=== PATIENT | male | born 1985 | race Caucasian/White ===

== ENCOUNTER 2021-04-04 15:33 | Emergency (ER) | payer BC ==
[2021-04-04 16:18] LABS: Absolute Lymphocytes (CBC) 2.2 K/uL (0.7-4.9); Basophils % 0.5 % (0-1.3); Hematocrit 46.1 % (39.6-49.0); Lymphocytes % 28.5 % (15.3-44.8); MPV 8.5 fL (7.6-11.3); RBC Red Blood Cell Count 5.23 M/uL (4.33-5.43)
[2021-04-04 16:21] LABS: Protime INR 1.07
[2021-04-04 16:34] LABS: ALT/SGPT 44 U/L (12-78); AST/SGOT 26 U/L (15-37); Albumin 3.9 g/dL (3.4-5.0); Alkaline Phosphatase 72 U/L (45-117); BUN Blood Urea Nitrogen 14 mg/dL (7-18); Bicarbonate 22 mmol/L (21-32); Bilirubin Direct 0.1 mg/dL (0-0.2); Bilirubin Total 0.4 mg/dL (0.2-1.0); Glucose Level 106 mg/dL (74-106); Potassium 3.7 mmol/L (3.5-5.1); Protein, Total 7.1 g/dL (6.4-8.2); Sodium Level 143 mmol/L (136-145)
[2021-04-04] MEDS ORDERED: NA CHLORIDE 0.9% 3,000 ML ONE (16:40)
[2021-04-04 18:40] LABS: Urine Blood Negative (Negative); Urine Glucose Negative (Negative); Urine Protein Negative (Negative); Urine Specific Gravity <=1.005 (1.005-1.030)
--- NOTE | 2021-04-04 18:41 | EDPHYS ---
Physician Documentation [facility] Name: Rayray Mckeon Age: 35 yrs Sex: Male : 1985 Arrival Date: 04/04/2021 Time: 15:34 Bed 19 Private MD: ED Physician Tony Collins HPI: 04/04 18:38 This 35 yrs old Male presents to ER via EMS with complaints of Altered Mental Status. ma2 18:38 The patient presents with confusion. Onset: The symptoms/episode began/occurred ma2 gradually, 1 day(s) ago. Possible causes: drug use, alcohol. Associated signs and symptoms: Pertinent negatives: ataxia, combativeness, diaphoresis, diarrhea, headache. The patient has experienced similar episodes in the past. Healthy 30 was drinking vodka and smoking vape, and then he became emotional, and confused. Mom would like to check him out. Patient is intoxicated with alcohol. Has no other symptoms.. Historical: - Allergies: 15:54 No Known Allergies; sl2 - PMHx: 15:54 None; sl2 - Immunization history:: Adult Immunizations up to date, Client reports having NOT received the Covid vaccine. - Social history:: Smoking status: Patient reports the use of cigarette tobacco products, Patient uses alcohol, occasionally. Patient/guardian denies using alcohol, street drugs, The patient lives with family. - Family history:: not pertinent. ROS: 18:38 Constitutional: Negative for fever, chills, and weight loss, Eyes: Negative for injury, ma2 pain, redness, and discharge. 18:38 All other systems are negative. Exam: 18:38 Constitutional: This is a well developed, mildly drowsy, based on what patient's and ma2 mom states he is likely intoxicated with alcohol well nourished patient who is awake, alert, and in no acute distress. Head/Face: Normocephalic, atraumatic. Eyes: Pupils equal round and reactive to light, extra-ocular motions intact. Lids and lashes normal. Conjunctiva and sclera are non-icteric and not injected. Cornea within normal limits. Periorbital areas with no swelling, redness, or edema. ENT: Nares patent. No nasal discharge, no septal abnormalities noted. Tympanic membranes are normal and external auditory canals are clear. Oropharynx with no redness, swelling, or masses, exudates, or evidence of obstruction, uvula midline. Mucous membranes moist. Neck: Trachea midline, no thyromegaly or masses palpated, and no cervical lymphadenopathy. Supple, full range of motion without nuchal rigidity, or vertebral point tenderness. No Meningismus. Chest/axilla: Normal chest wall appearance and motion. Nontender with no deformity. No lesions are appreciated. Cardiovascular: Regular rate and rhythm with a normal S1 and S2. No gallops, murmurs, or rubs. Normal PMI, no JVD. No pulse deficits. Respiratory: Lungs have equal breath sounds bilaterally, clear to auscultation and percussion. No rales, rhonchi or wheezes noted. No increased work of breathing, no retractions or nasal flaring. Abdomen/GI: Soft, non-tender, with normal bowel sounds. No distension or tympany. No guarding or rebound. No evidence of tenderness throughout. Skin: Warm, dry with normal turgor. Normal color with no rashes, no lesions, and no evidence of cellulitis. MS/ Extremity: Pulses equal, no cyanosis. Neurovascular intact. Full, normal range of motion. Neuro: Awake and alert, GCS 15, oriented to person, place, time, and situation. Cranial nerves II-XII grossly intact. Motor strength 5/5 in all extremities. Sensory grossly intact. Cerebellar exam normal. Normal gait. Psych: Awake, alert, with orientation to person, place and time. Behavior, mood, and affect are within normal limits. Vital Signs: 15:35 BP 116 / 71; Pulse 73; Resp 22; Temp 98(O); Pulse Ox 100% on R/A; sl2 16:45 BP 101 / 48; Pulse 74; Resp 18; Temp 98.2; Pulse Ox 99% ; sl2 19:00 BP 105 / 59; Pulse 60; Resp 18; Pulse Ox 96% on R/A; sl2 19:15 BP 106 / 53; Pulse 75; Resp 18 S; Temp 98.6(O); Pulse Ox 97% on R/A; cc4 MDM: 15:38 Patient medically screened. ma2 18:38 Differential Diagnosis: electrolyte abnormality, alcohol intoxication, hypoglycemia, ma2 volume depletion. Data reviewed: vital signs, nurses notes. Counseling: I had a detailed discussion with the patient and/or guardian regarding: the historical points, exam findings, and any diagnostic results supporting the discharge/admit diagnosis, the presence of at least one elevated blood pressure reading (>120/80) during this emergency department visit, the need for outpatient follow up, Patient is back to patient is back to baseline. Response to treatment: the patient's symptoms have resolved after treatment. 04/04 15:38 Order name: Acetaminophen; Complete Time: 18:25 ca2 04/04 15:38 Order name: Basic Metabolic Panel; Complete Time: 18:25 ma2 04/04 15:38 Order name: CBC with Diff; Complete Time: 18:25 ma2 04/04 15:38 Order name: ETOH Level; Complete Time: 18: ma2 04/04 15:38 Order name: Hepatic Function; Complete Time: 18:25 ma2 04/04 15:38 Order name: PT-INR; Complete Time: 16: ma2 04/04 15:38 Order name: Ptt, Activated; Complete Time: 16:25 ca2 04/04 15:38 Order name: Salicylate; Complete Time: 18:25 ma2 04/04 15:38 Order name: Urine Drug Screen [facility] 04/04 15:38 Order name: EKG; Complete Time: 15:39 ma2 04/04 15:38 Order name: EKG - Nurse/Tech; Complete Time: 16:57 ma2 04/04 18:39 Order name: Urine Dipstick-Ancillary; Complete Time: 18:41 EDUT 04/04 15:38 Order name: IV Saline Lock; Complete Time: 15:44 ma2 04/04 15:38 Order name: Labs collected and sent; Complete Time: 16:57 ma2 04/04 15:38 Order name: Suicide Screening ([place]); Complete Time: 16:57 ma2 04/04 15:38 Order name: Urine Dipstick-Ancillary (obtain specimen); Complete Time: 18:42 ma2 Administered Medications: 15:44 Drug: NS 0.9% 2000 ml Route: IV; Rate: 1 bolus; Site: right antecubital; sl2 16:56 Follow up: Response: No adverse reaction; IV Status: Infusion continued 2 18:07 Drug: NS 0.9% 1000 ml Route: IV; Rate: 125 ml/hr; Site: right antecubital; sl2 19:20 Follow up: IV Status: Completed infusion; IV Intake: 500ml sl2 Disposition Summary: 04/04/21 18:41 Discharge Ordered Location: Home ma2 Condition: Stable ma2 Diagnosis - Alcohol use, unspecified ma2 Followup: ma2 - With: Private Physician - When: Tomorrow - Reason: If symptoms return, Continuance of care Discharge Instructions: - Discharge Summary Sheet ma2 - Smoking Tobacco Information, Adult ma2 Forms: - Medication Reconciliation Form ma2 - Thank You Letter ma2 - Antibiotic Education ma2 - Prescription Opioid Use ma2 Signatures: Dispatcher [employer] EDMS Tony Collins MD MD ma2 Stephie Waddell RN RN 2
--- NOTE | 2021-04-04 18:41 | ER ---
Nurse's Notes [facility] Name: Rayray Mckeon Age: 35 yrs Sex: Male : 1985 Arrival Date: 04/04/2021 Time: 15:34 Bed 19 Private MD: Diagnosis: Alcohol use, unspecified Presentation: 04/04 15:35 Chief complaint: EMS states: Patient smoked Delta - 8 via vape - shortly afterwards sl2 became hyper emotional crying uncontrollably, followed by a syncopal episode patient was at that time sitting on the floor so did not hit his head, patient's mother was with him and stated he stopped breathing for a few seconds and then gasped for air after she started shaking him. Patient currently emotional - crying. 15:35 Coronavirus screen: Vaccine status: Patient reports being unvaccinated. Ebola Screen: sl2 Patient negative for fever greater than or equal to 101.5 degrees Fahrenheit, and additional compatible Ebola Virus Disease symptoms Patient denies exposure to infectious person. Patient denies travel to an Ebola-affected area in the 21 days before illness onset. No symptoms or risks identified at this time. Initial Sepsis Screen: Does the patient have a suspected source of infection? No. Patient's initial sepsis screen is negative. Risk Assessment: Do you want to hurt yourself or someone else? Patient reports no desire to harm self or others. Onset of symptoms was April 04, 2021. 15:35 Method Of Arrival: EMS: [facility] sl2 15:35 Acuity: BRIELLE 2 sl2 15:40 Initial Sepsis Screen: Does the patient meet any 2 criteria? No. Patient's initial sl2 sepsis screen is negative. Triage Assessment: 15:54 General: Appears uncomfortable, well groomed, well developed, Behavior is crying, sl2 inappropriate for age. Pain: Denies pain. Neuro: No deficits noted. Level of Consciousness is awake, alert, obeys commands, Oriented to person, place, time, situation, none. 15:54 Cardiovascular: Capillary refill < 3 seconds Rhythm is regular. sl2 Historical: - Allergies: 15:54 No Known Allergies; sl2 - PMHx: 15:54 None; sl2 - Immunization history:: Adult Immunizations up to date, Client reports having NOT received the Covid vaccine. - Social history:: Smoking status: Patient reports the use of cigarette tobacco products, Patient uses alcohol, occasionally. Patient/guardian denies using alcohol, street drugs, The patient lives with family. - Family history:: not pertinent. Screenin:00 Abuse screen: Denies threats or abuse. Denies injuries from another. sl2 16:00 Nutritional screening: No deficits noted. Tuberculosis screening: No symptoms or risk sl2 factors identified. Fall Risk Fall in past 12 months (25 points). No secondary diagnosis (0 pts). IV access (20 points). Ambulatory Aid- None/Bed Rest/Nurse Assist (0 pts). Gait- Weak (10 pts.). Mental Status- Oriented to own ability (0 pts). Total Lara Fall Scale indicates Low Risk Score (25-44 pts). Fall prevention measures have been instituted. Side Rails Up X 2 Placed close to Nursing Station Frequent Obs/Assesments occuring Family Present and informed to notify staff if they need to leave bedside. Assessment: 19:12 Reassessment: [facility] IF infusion in progress - patient tolerating well, denies any sl2 untoward symptoms, vital signs stable - will continue to re-assess and monitor. Vital Signs: 15:35 BP 116 / 71; Pulse 73; Resp 22; Temp 98(O); Pulse Ox 100% on R/A; sl2 16:45 BP 101 / 48; Pulse 74; Resp 18; Temp 98.2; Pulse Ox 99% ; sl2 19:00 BP 105 / 59; Pulse 60; Resp 18; Pulse Ox 96% on R/A; sl2 19:15 BP 106 / 53; Pulse 75; Resp 18 S; Temp 98.6(O); Pulse Ox 97% on R/A; cc4 ED Course: 15:34 Patient arrived in ED. ss 15:34 Tony Collins MD is Attending Physician. ma2 15:43 Stephie Waddell, RAMIREZ is Primary Nurse. sl2 15:54 Triage completed. sl2 15:54 Arm band placed on left wrist. sl2 16:00 No provider procedures requiring assistance completed. sl2 18:42 Patient has correct armband on for positive identification. Bed in low position. Call mh5 light in reach. Side rails up X2. Adult w/ patient. Warm blanket given. case monitor on. Pulse ox on. NIBP on. 18:42 Urine Drug Screen Sent. [facility] 18:43 Initial lab(s) drawn, by mi, sent to lab. Urine collected: clean catch specimen, clear, 5 EKG done, by ED staff, reviewed by Tony Collins MD. 18:43 Maintain EMS IV. Dressing intact. Good blood return noted. Site clean \T\ dry. 5 19:19 IV discontinued, intact, bleeding controlled, No redness/swelling at site. Pressure sl2 dressing applied. Administered Medications: 15:44 Drug: NS 0.9% 2000 ml Route: IV; Rate: 1 bolus; Site: right antecubital; sl2 16:56 Follow up: Response: No adverse reaction; IV Status: Infusion continued 2 18:07 Drug: NS 0.9% 1000 ml Route: IV; Rate: 125 ml/hr; Site: right antecubital; sl2 19:20 Follow up: IV Status: Completed infusion; IV Intake: 500ml sl2 Intake: 19:20 IV: 500ml; Total: 500ml. 2 Outcome: 18:41 Discharge ordered by . [facility] 19:19 Discharged to home with family. 2 19:19 Condition: good 19:19 Condition: stable 19:19 Discharge instructions given to patient, family, Instructed on discharge instructions, follow up and referral plans. Demonstrated understanding of instructions, follow-up care. 19:23 Patient left the ED. 2 Signatures: Charisse Norwood RN RN Ann Marie Don [facility] Tony Collins MD MD maElsi Reyez RN RN cc4 Stephie Waddell RN RN 2 Corrections: (The following items were deleted from the chart) 16:01 15:35 Chief complaint: EMS states: Patient smoked Delta - 8 via vape - shortly sl2 afterwards became hyper emotional crying uncontrollably, followed by a syncopal episode where patient fell to the floor, patient's mother was with him and stated he stopped breathing for a few seconds and then gasped for air after she started shaking him. Patient currently emotional - crying. 2 19:18 19:00 BP 142 / 52; Pulse 60bpm; Resp 18bpm; Pulse Ox 96% RA; sl2 sl2
[2021-04-04 19:21] LABS: Barbiturates NEGATIVE (NEGATIVE); Benzodiazepines NEGATIVE (NEGATIVE); Cocaine NEGATIVE (NEGATIVE); METHAMPHETAM NEGATIVE (NEGATIVE); Methadone NEGATIVE (NEGATIVE); Opiates NEGATIVE (NEGATIVE); Phencyclidine NEGATIVE (NEGATIVE); THC Cannibis POSITIVE (NEGATIVE)
[2021-04-04 19:34] VITALS: TEMP 98.2
[2021-04-04 19:36] VITALS: BP 105/59; O2SAT 96
== END 2021-04-04 19:23 | disposition home or self-care (01) ==
LOC: ER 15:33
DX: F10.10 Alcohol abuse, uncomplicated (principal); Z72.0 Tobacco use
CPT/HCPCS: 96361; 93005; 85025; 80048; 36415; 80320; 80329 ×2; 85610; 80076; 85730; 81003; 80307; 96360; 99284; J7030